=== PATIENT | male | born 1965 | race Caucasian/White ===

== ENCOUNTER → 2017-11-20 | Outpatient (CLI) | payer BC ==
[2017-11-20 14:48] LABS: SYNOVIAL FLUID RBC 5000 /mm3 (0-0); SYNOVIAL FLUID WBC 8182 /mm3 (200-600)
[2017-11-20 14:51] LABS: SYNOVIAL FLUID APPEARANCE CLOUDY; SYNOVIAL FLUID COLOR AMBER
== END ==
LOC: ZCOL.LAB 14:06
PROVIDERS: Physician Assistant
DX: Z01.89 Encounter for other specified special examinations (principal)